=== PATIENT | male | born 1995 | race Caucasian/White ===

== ENCOUNTER 2017-01-11 14:29 | Emergency (ER) | payer OTHER, BC ==
[~2017-01-11] VITALS: Ht 177.8 cm; Wt 92.0 kg
[~2017-01-11 14:29] MED LIST: AMOXICILLIN500 MG PO; IBUPROFEN400 MG PO; LITHIUM CARBON300 M1 PO; LITHIUM CARBON300 MG PO; LITHOBID300 MG PO; LOPRESSOR100 M1 PO; TYLENOL REGULA325 MG PO; ZOLOFT50 MG PO
[2017-01-11 17:14] LABS: EOSINOPHIL (%) 1.1 % (0-5); EOSINOPHIL COUNT 0.1 K/uL (0-0.3); HEMATOCRIT 42.1 % (38.0-50.0); IMMATURE GRANULOCYTE (%) 0.8 % (0.0-0.7); IMMATURE GRANULOCYTE COUNT 0.1 K/uL; INSTRUMENT ABS NEUTROPHIL CT 9.6 K/uL; LYMPHOCYTE COUNT 2.4 K/uL (1.0-2.8); MCH 30.5 PG (29.0-34.0); MCHC 34.7 G/DL (30.0-36.0); MCV 88.1 FL (86-99); MEAN PLAT.VOLUME 10.1 uM^3 (9.0-12.4); MONOCYTE (%) 6.8 % (3-12); MONOCYTE COUNT 0.9 K/uL (0-0.8); NEUTROPHIL (%) 72.9 % (45-76); NEUTROPHIL COUNT 9.6 K/uL (1.8-6.4); PLATELET COUNT 198 K/uL (156-360); RBC DIS.WIDTH-CV 11.4 % (11.8-14.6); RBC DIS.WIDTH-SD 36.8 % (39-53); RED BLOOD COUNT 4.78 M/uL (4.00-5.50); WHITE BLOOD COUNT 13.1 K/uL (4.1-10.2)
[2017-01-11 17:23] LABS: CHLORIDE 107 mEq/L (99-109); POTASSIUM 3.4 mEq/L (3.7-5.4); SODIUM 139 mEq/L (136-147)
[2017-01-11 17:25] LABS: GLUCOSE 98 mg/dL (70-99)
[2017-01-11 17:26] LABS: ANION GAP 8 MEQ/L (2-14)
[2017-01-11 17:27] LABS: TOTAL BILIRUBIN 0.5 mg/dL (0.0-1.0)
[2017-01-11 17:29] LABS: ALKALINE PHOSPHATASE 47 IU/L (3-129); GFR ESTIMATE (CALCULATED) > 59 mL/min/
[2017-01-11 17:30] LABS: UREA NITROGEN (BUN) 9 mg/dL (9-23)
[2017-01-11 17:32] LABS: CREATINE KINASE 69 IU/L (1-294); LIPASE 11 U/L (1.0-51.0); TOTAL CK 69 IU/L (1-294)
[2017-01-11 17:34] LABS: TROP-I INTERPRETATION NEGATIVE; TROPONIN-I < 0.01 ng/mL (0.0-0.30)
[2017-01-11 17:38] LABS: CK-MB 0.4 ng/mL (0.0-4.9)
[2017-01-11 19:51] LABS: ADD MIUA? NO; BILIRUBIN NEGATIVE; BLOOD NEGATIVE; COLOR YELLOW ((YELLOW)); GLUCOSE (STRIP) NEGATIVE; KETONES NEGATIVE; LEUKOCYTES NEGATIVE; NITRITE NEGATIVE; PROTEIN (STRIP) NEGATIVE; SPECIFIC GRAVITY 1.011 (1.000-1.030); UROBILINOGEN 0.2 MG/DL (0.2-1.0)
[2017-01-11 20:01] LABS: AMPHETAMINE NEGATIVE (500 ng/mL); BARBITURATES NEGATIVE (200 ng/mL); BENZODIAZEPINES NEGATIVE (150 ng/mL); COCAINE NEGATIVE (150 ng/mL); METHADONE NEGATIVE (200 ng/mL); METHAMPHETAMINE NEGATIVE (500 ng/mL); OPIATES (MORPHINE) PRESUMPTIVE POSITIVE (100 ng/mL); OXYCODONE NEGATIVE (100 ng/mL); PHENCYCLIDINE NEGATIVE (25 ng/mL); PROPOXYPHENE NEGATIVE (300 ng/mL); THC CANNABINOIDS NEGATIVE (50 ng/mL); TRICYCLIC ANTIDEPRESSANTS NEGATIVE (300 ng/mL)
[2017-01-11 20:02] LABS: ADD MEDTOX COMMENT Y
[2017-01-11 20:52] LABS: TROP-I INTERPRETATION NEGATIVE; TROPONIN-I < 0.01 ng/mL (0.0-0.30)
[2017-01-11 22:01] LABS: INTERNAL CONTROLS VALID? YES
[2017-01-11 22:45] VITALS: BP 139/97
== END 2017-01-11 22:50 | disposition short-term general hospital (02) ==
LOC: EME → EDBD 14:29 → EME 22:50
PROVIDERS: Emergency Medicine
DX: R00.0 Tachycardia, unspecified (principal); R07.9 Chest pain, unspecified; R06.02 Shortness of breath; R51 Headache; I10 Essential (primary) hypertension
CPT/HCPCS: 70450; 71275; 80053; 81003; 82550; 82553; 83690; 84443; 84484; 84999; 85025; 87040; 93005; 99281; 99285; J2405; J3010

== ENCOUNTER 2017-12-14 18:38 | Inpatient (IN) | payer OTHER, BC ==
[~2017-12-14] VITALS: Ht 177.8 cm; Wt 103.5 kg
[2017-12-14 19:42] LABS: HEMATOCRIT 45.7 % (38.0-50.0); HEMOGLOBIN 16.2 G/DL (12.5-16.6); MCH 31.1 PG (29.0-34.0); MCHC 35.4 G/DL (30.0-36.0); MCV 87.7 FL (86-99); PLATELET COUNT 208 K/uL (156-360); RBC DIS.WIDTH-SD 38.5 % (39-53); RED BLOOD COUNT 5.21 M/uL (4.00-5.50); WHITE BLOOD COUNT 14.4 K/uL (4.1-10.2)
[2017-12-14 19:48] LABS: INTER. NORMALIZED RATIO 1.1
[2017-12-14 19:51] LABS: PTT 26.2 SEC (25-37)
[2017-12-14 19:54] LABS: ALBUMIN 4.9 g/dL (3.2-4.8); CHLORIDE 105 mEq/L (99-109); SODIUM 140 mEq/L (136-147)
[2017-12-14 19:56] LABS: GLUCOSE 98 mg/dL (70-99); TOTAL PROTEIN 8.4 g/dL (6.4-8.3)
[2017-12-14 19:58] LABS: TOTAL BILIRUBIN 0.8 mg/dL (0.0-1.0)
[2017-12-14 19:59] LABS: SERUM ETHYL ALCOHOL < 10 mg/dL
[2017-12-14 20:00] LABS: ALKALINE PHOSPHATASE 67 IU/L (3-129); CREATININE 1.3 mg/dL (0.6-1.3); GFR ESTIMATE (CALCULATED) > 59 mL/min/ (58.99-99999)
[2017-12-14 20:01] LABS: AST (GOT) 18 IU/L (2-34); UREA NITROGEN (BUN) 10 mg/dL (9-23)
[2017-12-14 20:03] LABS: ALT (GPT) 18 IU/L (3-49); LIPASE 16 U/L (1.0-51.0)
[2017-12-14 20:04] LABS: TROP-I INTERPRETATION NEGATIVE; TROPONIN-I < 0.01 ng/mL (0.0-0.30)
[2017-12-15] VITALS (7 sets, daily range): BP systolic 110–181; BP diastolic 57–135
[2017-12-15 00:56] LABS: TROP-I INTERPRETATION NEGATIVE; TROPONIN-I 0.01 ng/mL (0.0-0.30)
[2017-12-15 05:52] LABS: HEMATOCRIT 38.9 % (38.0-50.0); MCH 29.7 PG (29.0-34.0); MCHC 33.4 G/DL (30.0-36.0); MCV 88.8 FL (86-99); PLATELET COUNT 185 K/uL (156-360); RBC DIS.WIDTH-CV 11.9 % (11.8-14.6); RBC DIS.WIDTH-SD 38.5 % (39-53); RED BLOOD COUNT 4.38 M/uL (4.00-5.50); WHITE BLOOD COUNT 8.7 K/uL (4.1-10.2)
[2017-12-15 05:53] LABS: CHLORIDE 107 MEQ/L (99-109); CREATININE 1.3 MG/DL (0.6-1.3); GFR ESTIMATE (CALCULATED) > 59 mL/min/ (58.99-99999); GLUCOSE 100 mg/dL (70-99); POTASSIUM 3.6 MEQ/L (3.7-5.4); SODIUM 139 MEQ/L (136-147); UREA NITROGEN (BUN) 12 mg/dL (9-23)
[2017-12-15] MEDS ORDERED: NORVASC10 MG PO (13:50)
[2017-12-15] MEDS ORDERED: LOSARTAN POTASS25 MG PO (13:51)
[2017-12-15] MEDS ORDERED: COZAAR50 MG PO (13:51)
[2017-12-15] MEDS ORDERED: REMERON30 M2 PO (13:51)
[2017-12-15] MEDS ORDERED: DILTIAZEM 24HR180 MG PO (13:52)
[2017-12-15] MEDS ORDERED: BISOPROLOL FUMAR5 MG PO (13:54)
[2017-12-15] MEDS ORDERED: COLESTIPOL HCL1 GM PO (13:54)
[2017-12-15] MEDS ORDERED: FISH OIL 1,0001 EAC7 PO (13:55)
[2017-12-16] VITALS (7 sets, daily range): BP systolic 113–181; BP diastolic 57–104
[2017-12-17 02:40] VITALS: BP 120/56
[2017-12-17 05:41] LABS: CHLORIDE 109 MEQ/L (99-109); CREATININE 1.3 MG/DL (0.6-1.3); GFR ESTIMATE (CALCULATED) > 59 mL/min/ (58.99-99999); GLUCOSE 109 mg/dL (70-99); POTASSIUM 4.1 MEQ/L (3.7-5.4); SODIUM 140 MEQ/L (136-147); UREA NITROGEN (BUN) 13 mg/dL (9-23)
[2017-12-17 08:48] VITALS: BP 188/105
[2017-12-17] MEDS ORDERED: LOPRESSOR100 M1 PO (08:59)
[2017-12-17 12:48] VITALS: BP 189/93
[2017-12-17 13:28] VITALS: BP 159/98
== END 2017-12-17 14:50 | DRG 310 ==
LOC: EME 18:38 → EDOF 22:45 → 4EAST 22:45 → ENRESERV 22:48 → 4EAST 23:57
PROVIDERS: Emergency Medicine; Hospitalist; Internal Medicine Cardiovascular Disease
DX: I47.1 Supraventricular tachycardia (principal); R07.89 Other chest pain; I49.1 Atrial premature depolarization; I49.8 Other specified cardiac arrhythmias; I10 Essential (primary) hypertension; R42 Dizziness and giddiness; D72.829 Elevated white blood cell count, unspecified; E87.6 Hypokalemia; M19.90 Unspecified osteoarthritis, unspecified site; F19.90 Other psychoactive substance use, unspecified, uncomplicated; F39 Unspecified mood [affective] disorder; Z96.89 Presence of other specified functional implants
CPT/HCPCS: 71045; 80048; 80053; 81003; 83605; 83690; 84443; 84484; 85027; 85610; 85730; 86850; 86900; 86901; 87040; 87641; 93005; 93306; 99281; 99285; G0480; J0360; J1650; J2405; J7030

== ENCOUNTER 2018-01-11 23:27 | Emergency (ER) | payer OTHER ==
[~2018-01-11] VITALS: Ht 177.8 cm; Wt 104.0 kg
[~2018-01-11 23:27] MED LIST changes: +BISOPROLOL FUMAR5 MG PO; +COLESTIPOL HCL1 GM PO; +COZAAR50 MG PO; +DILTIAZEM 24HR180 MG PO; +FISH OIL 1,0001 EAC7 PO; +LOSARTAN POTASS25 MG PO; +NORVASC10 MG PO; +REMERON30 M2 PO
[2018-01-11 23:49] LABS: HEMATOCRIT 46.8 % (38.0-50.0); MCH 30.5 PG (29.0-34.0); MCHC 34.8 G/DL (30.0-36.0); MCV 87.6 FL (86-99); PLATELET COUNT 208 K/uL (156-360); RBC DIS.WIDTH-CV 11.7 % (11.8-14.6); RBC DIS.WIDTH-SD 37.5 % (39-53); WHITE BLOOD COUNT 10.4 K/uL (4.1-10.2)
[2018-01-11 23:50] LABS: HEMOGLOBIN 16.3 G/DL (12.5-16.6); RED BLOOD COUNT 5.34 M/uL (4.00-5.50)
[2018-01-12 00:02] LABS: CHLORIDE 104 mEq/L (99-109); SODIUM 137 mEq/L (136-147)
[2018-01-12 00:04] LABS: GLUCOSE 92 mg/dL (70-99)
[2018-01-12 00:08] LABS: CREATININE 1.3 mg/dL (0.6-1.3); GFR ESTIMATE (CALCULATED) > 59 mL/min/ (58.99-99999)
[2018-01-12 00:09] LABS: UREA NITROGEN (BUN) 8 mg/dL (9-23)
[2018-01-12 00:16] LABS: TROP-I INTERPRETATION NEGATIVE; TROPONIN-I < 0.01 ng/mL (0.0-0.30)
[2018-01-12 00:18] LABS: INTER. NORMALIZED RATIO 1.1
[2018-01-12 02:53] VITALS: BP 144/87
== END 2018-01-12 04:06 | disposition short-term general hospital (02) ==
LOC: EME → EDBD 23:27 → EME 01-12 04:06
DX: I48.92 Unspecified atrial flutter (principal); R07.9 Chest pain, unspecified; I47.1 Supraventricular tachycardia; I48.91 Unspecified atrial fibrillation; Z79.01 Long term (current) use of anticoagulants; I12.9 Hypertensive chronic kidney disease with stage 1 through stage 4 chronic kidney disease, or unspecified chronic kidney disease; N18.9 Chronic kidney disease, unspecified; Z88.8 Allergy status to other drugs, medicaments and biological substances
CPT/HCPCS: 71046; 80048; 84484; 85027; 85610; 85730; 93005; 99281; 99285; J7030

== ENCOUNTER 2018-02-06 02:19 | Observation (INO) | payer OTHER ==
[~2018-02-06] VITALS: Ht 177.8 cm; Wt 104.0 kg
[2018-02-06 02:41] LABS: HEMATOCRIT 44.8 % (38.0-50.0); HEMOGLOBIN 15.8 G/DL (12.5-16.6); MCH 30.4 PG (29.0-34.0); MCHC 35.3 G/DL (30.0-36.0); MCV 86.2 FL (86-99); PLATELET COUNT 214 K/uL (156-360); RBC DIS.WIDTH-CV 11.6 % (11.8-14.6); RBC DIS.WIDTH-SD 36.7 % (39-53)
[2018-02-06 02:49] LABS: CHLORIDE 103 mEq/L (99-109); POTASSIUM 4.2 mEq/L (3.7-5.4); SODIUM 137 mEq/L (136-147)
[2018-02-06 02:51] LABS: GLUCOSE 99 mg/dL (70-99)
[2018-02-06 02:55] LABS: CREATININE 1.3 mg/dL (0.6-1.3); GFR ESTIMATE (CALCULATED) > 59 mL/min/ (58.99-99999); UREA NITROGEN (BUN) 10 mg/dL (9-23)
[2018-02-06 03:02] LABS: TROP-I INTERPRETATION NEGATIVE; TROPONIN-I < 0.01 ng/mL (0.0-0.30)
[2018-02-06 04:45] LABS: APPEARANCE CLEAR ((CLEAR)); BILIRUBIN NEGATIVE; BLOOD NEGATIVE; COLOR YELLOW ((YELLOW)); GLUCOSE (STRIP) NEGATIVE; KETONES 5; LEUKOCYTES NEGATIVE; NITRITE NEGATIVE; PROTEIN (STRIP) NEGATIVE; SPECIFIC GRAVITY 1.006 (1.000-1.030); UCUL ADDED? NO; UROBILINOGEN 0.2 MG/DL (0.2-1.0)
[2018-02-06 04:55] LABS: AMPHETAMINE NEGATIVE (500 ng/mL); BARBITURATES NEGATIVE (200 ng/mL); BENZODIAZEPINES NEGATIVE (150 ng/mL); BUPRENORPHINE PRESUMPTIVE POSITIVE (10 ng/mL); COCAINE NEGATIVE (150 ng/mL); METHADONE NEGATIVE (200 ng/mL); METHAMPHETAMINE NEGATIVE (500 ng/mL); OPIATES (MORPHINE) NEGATIVE (100 ng/mL); OXYCODONE NEGATIVE (100 ng/mL); PHENCYCLIDINE NEGATIVE (25 ng/mL); PROPOXYPHENE NEGATIVE (300 ng/mL); THC CANNABINOIDS NEGATIVE (50 ng/mL); TRICYCLIC ANTIDEPRESSANTS NEGATIVE (300 ng/mL)
[2018-02-06 05:31] VITALS: BP 144/97
[2018-02-06 07:05] VITALS: BP 123/64
[2018-02-06 11:26] VITALS: BP 138/88
[2018-02-06] MEDS ORDERED: CARDIZEM CD120 M1 PO (11:27)
== END 2018-02-06 12:49 ==
LOC: EME → EDBD 02:19 → EME 02:19 → EDOF 04:29 → ENRESERV 04:31 → 4SOUTH 05:17
PROVIDERS: Emergency Medicine; Physician Assistant Medical
DX: R00.2 Palpitations (principal); R07.9 Chest pain, unspecified; I47.1 Supraventricular tachycardia; Z95.818 Presence of other cardiac implants and grafts; I10 Essential (primary) hypertension; G90.1 Familial dysautonomia [Riley-Day]; J45.909 Unspecified asthma, uncomplicated; F31.9 Bipolar disorder, unspecified; F19.11 Other psychoactive substance abuse, in remission; Z86.19 Personal history of other infectious and parasitic diseases; Z90.49 Acquired absence of other specified parts of digestive tract; Z88.8 Allergy status to other drugs, medicaments and biological substances; Z68.33 Body mass index [BMI] 33.0-33.9, adult
CPT/HCPCS: 71046; 80048; 81003; 84484; 85027; 93005; 99281; 99285; G0378; J7040

== ENCOUNTER 2018-03-21 22:19 | Emergency (ER) | payer OTHER ==
[~2018-03-21] VITALS: Ht 177.8 cm; Wt 99.7 kg
[~2018-03-21 22:19] MED LIST changes: +CARDIZEM CD120 M1 PO
[2018-03-21 23:18] LABS: HEMATOCRIT 43.2 % (38.0-50.0); HEMOGLOBIN 15.4 G/DL (12.5-16.6); MCH 30.3 PG (29.0-34.0); MCHC 35.6 G/DL (30.0-36.0); PLATELET COUNT 222 K/uL (156-360); RBC DIS.WIDTH-CV 11.9 % (11.8-14.6); RBC DIS.WIDTH-SD 36.8 % (39-53); RED BLOOD COUNT 5.08 M/uL (4.00-5.50); WHITE BLOOD COUNT 10.9 K/uL (4.1-10.2)
[2018-03-21 23:33] LABS: ALBUMIN 4.4 g/dL (3.2-4.8); CHLORIDE 101 mEq/L (99-109); POTASSIUM 4.2 mEq/L (3.7-5.4); SODIUM 139 mEq/L (136-147)
[2018-03-21 23:35] LABS: GLUCOSE 108 mg/dL (70-99)
[2018-03-21 23:36] LABS: TOTAL PROTEIN 7.3 g/dL (6.4-8.3)
[2018-03-21 23:37] LABS: TOTAL BILIRUBIN 0.6 mg/dL (0.0-1.0)
[2018-03-21 23:39] LABS: ALKALINE PHOSPHATASE 68 IU/L (3-129); CREATININE 1.1 mg/dL (0.6-1.3); GFR ESTIMATE (CALCULATED) > 59 mL/min/ (58.99-99999)
[2018-03-21 23:40] LABS: UREA NITROGEN (BUN) 11 mg/dL (9-23)
[2018-03-21 23:41] LABS: AST (GOT) 94 IU/L (2-34)
[2018-03-21 23:42] LABS: ALT (GPT) 70 IU/L (3-49)
[2018-03-21 23:43] LABS: LIPASE 12 U/L (1.0-51.0)
[2018-03-21 23:49] LABS: TROP-I INTERPRETATION NEGATIVE; TROPONIN-I < 0.01 ng/mL (0.0-0.30)
[2018-03-22] MEDS ORDERED: BENTYL20 MG PO (02:25)
[2018-03-22] MEDS ORDERED: ZOFRAN4 MG PO (02:25)
[2018-03-22 02:53] VITALS: BP 133/98
[2018-03-22 02:59] LABS: APPEARANCE CLEAR ((CLEAR)); BILIRUBIN NEGATIVE; BLOOD NEGATIVE; COLOR YELLOW ((YELLOW)); GLUCOSE (STRIP) NEGATIVE; KETONES NEGATIVE; LEUKOCYTES NEGATIVE; NITRITE NEGATIVE; PROTEIN (STRIP) NEGATIVE; SPECIFIC GRAVITY 1.018 (1.000-1.030); UCUL ADDED? NO; UROBILINOGEN 0.2 MG/DL (0.2-1.0)
[2018-03-22 04:39] LABS: AMPHETAMINE NEGATIVE (500 ng/mL); BARBITURATES NEGATIVE (200 ng/mL); BENZODIAZEPINES NEGATIVE (150 ng/mL); BUPRENORPHINE PRESUMPTIVE POSITIVE (10 ng/mL); COCAINE NEGATIVE (150 ng/mL); METHADONE NEGATIVE (200 ng/mL); METHAMPHETAMINE NEGATIVE (500 ng/mL); OPIATES (MORPHINE) NEGATIVE (100 ng/mL); OXYCODONE NEGATIVE (100 ng/mL); PHENCYCLIDINE NEGATIVE (25 ng/mL); PROPOXYPHENE NEGATIVE (300 ng/mL); THC CANNABINOIDS NEGATIVE (50 ng/mL); TRICYCLIC ANTIDEPRESSANTS NEGATIVE (300 ng/mL)
== END 2018-03-22 03:03 ==
LOC: EME → EDBD 22:19 → EME 22:19
PROVIDERS: Emergency Medicine
DX: R00.2 Palpitations (principal); R11.2 Nausea with vomiting, unspecified; R74.0 Nonspecific elevation of levels of transaminase and lactic acid dehydrogenase [LDH]; R82.5 Elevated urine levels of drugs, medicaments and biological substances; I10 Essential (primary) hypertension; Z87.891 Personal history of nicotine dependence
CPT/HCPCS: 71045; 74177; 80053; 81003; 83605; 83690; 84484; 85027; 87040; 93005; 99281; 99285; J2405; J3010; J7030; S0028